=== PATIENT | female | born 1970 | race Caucasian/White ===

== ENCOUNTER 2019-03-21 11:46 | Emergency (ER) | payer OTHER ==
[~2019-03-21] VITALS: Ht 175.3 cm; Wt 73.9 kg
[2019-03-21 11:48] VITALS: BP 143/77
--- NOTE | 2019-03-21 12:35 | NUR ---
PT CALLED, NO ANSWER X 1
--- NOTE | 2019-03-21 13:12 | NUR ---
CALLED PATIENT NO ANSWER
== END 2019-03-21 13:16 | disposition left against medical advice (07) ==
LOC: ED 13:05
DX: M25.511 Pain in right shoulder (principal)
CPT/HCPCS: 93005; 99283

== ENCOUNTER 2019-06-14 09:03 | Emergency (ER) | payer OTHER ==
[~2019-06-14] VITALS: Ht 175.3 cm; Wt 75.7 kg
--- NOTE | 2019-06-14 09:52 | NUR ---
PT WITH C/O COUGH, BODY ACHES BEGINNING THIS AM. DENIES FEVER, PT WITH EXPOSURE TO POSITIVE COVID INDIVIDUAL. NO CP REPORTED
[2019-06-14] MEDS ORDERED: OXYcodone/APAP 5/325MG TABLET PO ONE (10:00)
[2019-06-14] MEDS ORDERED: OXYcodone/APAP 5/325MG TABLET ONE (10:03)
--- NOTE | 2019-06-14 10:18 | NUR ---
PT MEDICATED PER MAR
--- NOTE | 2019-06-14 10:23 | NUR ---
REPORT FROM RK FORTUNE. PT LYING ON HER LEFT SIDE, COVERED WITH BLANKETS. INTRODUCTION TO PATIENT. WILL CONTINUE TO MONITOR PATIENT.
--- NOTE | 2019-06-14 11:16 | NUR ---
PT AWAKE A/O X3. PT ASKING WHEN SHE CAN GO HOME. RN INFORMS HER THAT IT REALLY DEPENDS ON HER TESTS RESULTS, HOW SHE FEELS, AND IF THE DOCTOR DEEMS IT APPROPRIATE. PT C/O SEVERE MERCADO AND DIFFICULTY BREATHING. RN ASSESS LUNGS. CTA ALL LOBES, DEEP BREATHING DOES INDUE A HARSH NON PRODUCTIVE COUGH. PT HAS BEEN FEELING THIS WAY FOR 3 MONTHS, BUT WAS EXPOSED TO HER SISTER 3 WEEKS. HER SISTER TRAVELS FOR A LIVING AND WAS DIAGNOSED WITH COVID 19 PRIOR TO COMING HOME. WILL INFORM MD OF ALL FINDINGS IN THE RN VISIT.
[2019-06-14 11:33] VITALS: BP 103/69
== END 2019-06-14 11:37 | disposition home or self-care (01) ==
LOC: ED 09:28
DX: B34.9 Viral infection, unspecified (principal); Z20.828 Contact with and (suspected) exposure to other viral communicable diseases; F17.200 Nicotine dependence, unspecified, uncomplicated; Z90.49 Acquired absence of other specified parts of digestive tract; Z90.710 Acquired absence of both cervix and uterus
CPT/HCPCS: 71045; 87081; 87880; 99284

== ENCOUNTER 2019-07-16 20:44 | Emergency (ER) | payer OTHER ==
[~2019-07-16] VITALS: Ht 175.3 cm; Wt 75.5 kg
--- NOTE | 2019-07-16 21:05 | NUR ---
REPORT RECEIVED FROM DEVIKA CAMPO. ASSUMED CARE OF PT.
[2019-07-16] MEDS ORDERED: IBUPROFEN 600 MG TABLET ONE (21:23)
[2019-07-16] MEDS ORDERED: HYDROcodone/APAP 5/325 TABLET ONE (21:23)
[2019-07-16] MEDS ORDERED: HYDROcodone/APAP 5/325 TABLET PO PRN (21:30)
[2019-07-16] MEDS ORDERED: IBUPROFEN 600 MG TABLET PO ONE (21:30)
--- NOTE | 2019-07-16 21:31 | NUR ---
THIS IS A 48 YO FEMALE PT C/O LEFT HAND PAIN S/P MGLF. PT MEDICATED ORDERED FOR PAIN RATED AT 8/10. PT AWARE WE ARE WAITING FOR IMAGING RESULTS. PT PROVIDED WITH ICE PACK AND POSITIONED FOR COMFORT IN QUIET, DARK ROOM. CALL LIGHT WITHIN REACH. WILL CONT TO OMERIOR PT.
[2019-07-16 21:43] VITALS: BP 99/58
--- NOTE | 2019-07-16 21:57 | NUR ---
REPORT TO DEVIKA GARDNER WHO ASSUMED CARE OF PT.
--- NOTE | 2019-07-16 22:07 | NUR ---
REPORT RECEIVED FROM DEVIKA ALEMAN. ASSUMED CARE OF PT
--- NOTE | 2019-07-16 22:43 | NUR ---
Patient/Caregiver given discharge instructions and they have confirmed that they understand the instructions. Patient ambulatory with steady gait.
== END 2019-07-16 22:45 | disposition home or self-care (01) ==
LOC: ED 21:09
DX: G89.11 Acute pain due to trauma (principal); M79.642 Pain in left hand; F17.210 Nicotine dependence, cigarettes, uncomplicated; Z90.49 Acquired absence of other specified parts of digestive tract; Z90.89 Acquired absence of other organs; Z90.710 Acquired absence of both cervix and uterus; Z90.722 Acquired absence of ovaries, bilateral; W18.30XA Fall on same level, unspecified, initial encounter; Y93.89 Activity, other specified; Y92.009 Unspecified place in unspecified non-institutional (private) residence as the place of occurrence of the external cause; Y99.8 Other external cause status
CPT/HCPCS: 29125; 99283; 99285; 99406

== ENCOUNTER 2019-07-27 10:20 | Emergency (ER) | payer OTHER ==
[~2019-07-27] VITALS: Ht 175.3 cm; Wt 75.7 kg
--- NOTE | 2019-07-27 11:01 | NUR ---
patient arrives with a cough and rash on her back that is three days old. xray ordered and then she refused.
[2019-07-27 11:35] VITALS: BP 123/78
--- NOTE | 2019-07-27 11:36 | NUR ---
Richard haynes in [facility] - 07/27/19 at 1139 by CAITLIN patient discharge reviewed.
--- NOTE | 2019-07-27 11:39 | NUR ---
went to discharge patient with paperwork and patient gone, all stuff gone, she left ama/prior to discharge
== END 2019-07-27 11:41 | disposition left against medical advice (07) ==
LOC: ED 10:42
DX: J20.9 Acute bronchitis, unspecified (principal); R05 Cough; F17.210 Nicotine dependence, cigarettes, uncomplicated
CPT/HCPCS: 99283

== ENCOUNTER 2020-07-03 12:59 | Emergency (ER) | payer SELFPAY ==
[~2020-07-03] VITALS: Ht 175.3 cm; Wt 78.8 kg
--- NOTE | 2020-07-03 14:10 | NUR ---
ASSUMED CARE OF PT
[2020-07-03] MEDS ORDERED: SODIUM CHLORIDE 0.9% 1,000ML IVBOLUS ONE (14:30)
[2020-07-03 15:14] VITALS: BP 118/61
[2020-07-03 15:18] LABS: BASOPHILS % (AUTO) 1 % (0-1); EOSINOPHILS % (AUTO) 3 % (1-7); LYMPHOCYTES % (AUTO) 40 % (22-44); MEAN CORPUSCULAR HEMOGLOBIN 33.2 pg (27.0-34.8); MEAN CORPUSCULAR HGB CONC 34.3 g/dL (32.4-35.8); MEAN PLATELET VOLUME 7.3 fL (7.4-10.4); MONOCYTES % (AUTO) 7 % (2-9); NEUTROPHILS % (AUTO) 49 % (42-75); PLATELET COUNT 313 x10^3/uL (130-400); RED BLOOD COUNT 4.71 x10^6/uL (3.82-5.3); RED CELL DISTRIBUTION WIDTH 13.2 % (9.6-15.2)
[2020-07-03 15:19] LABS: MD NO
[2020-07-03 15:29] LABS: ALANINE AMINOTRANSFERASE 86 U/L (12-78); ALBUMIN 4.4 g/dL (3.4-5.0); ANION GAP 7 mmol/L (5-15); CALCIUM 9.3 mg/dL (8.5-10.1); CHLORIDE 108 mmol/L (98-107); CREATININE 0.74 mg/dL (0.55-1.02)
[2020-07-03 15:33] LABS: ALKALINE PHOSPHATASE 88 U/L (45-117); BILIRUBIN,TOTAL 0.4 mg/dL (0.2-1.0); TOTAL PROTEIN 8.1 g/dL (6.4-8.2); TROPONIN I < 0.015 ng/mL (0.000-0.045)
[2020-07-03 15:46] LABS: INTERNATIONAL NORMALIZED RATIO 0.93 (0.93-1.1); PROTHROMBIN TIME 9.7 Seconds (9.6-11.5)
--- NOTE | 2020-07-03 16:45 | NUR ---
PATIENT STATED THAT SHE DID NOT WANT THE CT SCAN PERFORMED DUE TO COST CONCERNS AND THAT SHE IS FEELING BETTER. DR. CASTANEDA NOTIFIED AND REQUESTED THAT PATIENT SIGN AMA FORM, AND SHE DID. PATIENT UNDERSTANDS THAT A BLOOD CLOT IN HER LUNGS CANNOT BE RULED-OUT AND THAT SHE IS TO COME BACK TO THE ER FOR WORSENING SYMPTOMS.
== END 2020-07-03 17:00 | disposition left against medical advice (07) ==
LOC: ED 15:08
DX: R07.1 Chest pain on breathing (principal); R50.9 Fever, unspecified; R07.89 Other chest pain; R10.13 Epigastric pain; R06.02 Shortness of breath; R51.9 Headache, unspecified; Z90.89 Acquired absence of other organs; Z90.49 Acquired absence of other specified parts of digestive tract; Z90.710 Acquired absence of both cervix and uterus; Z90.721 Acquired absence of ovaries, unilateral
CPT/HCPCS: 36415; 71045; 80053; 83880; 84484; 85025; 85610; 93005; 96360; 96361; 99285; J7030